=== PATIENT | male | born 1960 | race Caucasian/White ===

== ENCOUNTER 2018-06-21 07:48 | Day surgery (SDC) | payer OTHER ==
[~2018-06-21 07:48] MED LIST: EPHEDrine SULFATE 50 MG/5 ML SYG
[2018-06-21] MEDS ORDERED: CEFAZOLIN 1 GM INJ (08:39)
[2018-06-21] MEDS ORDERED: ROCURONIUM 50 MG INJ (08:39)
[2018-06-21] MEDS ORDERED: MIDAZOLAM 1 MG/ML 2 ML INJ (08:39)
[2018-06-21] MEDS ORDERED: PROPOFOL 20 ML (08:39)
[2018-06-21] MEDS ORDERED: FENTAnyl 50 MCG/ML VIAL ×2 (08:39→11:52)
[2018-06-21] MEDS ORDERED: ONDANSETRON 4 MG INJ (09:39)
[2018-06-21] MEDS ORDERED: DEXAMETHASONE 4 MG/ML 1 ML INJ (09:39)
[2018-06-21] MEDS ORDERED: LIDOCAINE 1%/EPI 30 ML INJ (11:26)
[2018-06-21] MEDS ORDERED: BACITRACIN/POLYMYXIN 28.35 GM OINT TOP (11:27)
[2018-06-21] MEDS ORDERED: COCAINE 4% 4 ML TOP (11:27)
[2018-06-21] MEDS: LIDOCAINE 1%/EPI 30 ML INJ INJ (11:46)
[2018-06-21] MEDS: COCAINE 4% 4 ML TOP (11:46)
[2018-06-21] MEDS ORDERED: PHENYLephrine (100 MCG/ML) 5ML SYG (12:12)
[2018-06-21] MEDS ORDERED: FENTAnyl 50 MCG/ML VIAL IV ×3 (12:30)
[2018-06-21] MEDS ORDERED: EPHEDrine SULFATE 50 MG/5 ML SYG IV (12:30)
[2018-06-21] MEDS ORDERED: OXYCODONE/ACETAMINOPHEN (5/325) TAB PO ×2 (12:30)
[2018-06-21] MEDS ORDERED: hydrALAzine 20 MG INJ IV (12:30)
[2018-06-21] MEDS ORDERED: ALBUMIN HUMAN 5% 250 ML IV (12:30)
[2018-06-21] MEDS ORDERED: METOCLOPRAMIDE 10 MG INJ IV (12:30)
[2018-06-21] MEDS ORDERED: HYDROmorphONE 1 MG/5 ML IV SYRINGE IV ×3 (12:30)
[2018-06-21] MEDS ORDERED: DIPHENHYDRAMINE 50 MG INJ IV (12:30)
[2018-06-21] MEDS ORDERED: MEPERIDINE 25 MG INJ IV (12:30)
[2018-06-21] MEDS ORDERED: ONDANSETRON 4 MG INJ IV (12:30)
[2018-06-21] MEDS ORDERED: LABETALOL HCL 20MG INJ IV (12:30)
[2018-06-21] MEDS ORDERED: SUGAMMADEX SODIUM 200 MG/2 ML VIAL IV (12:45)
[2018-06-21] MEDS: BACITRACIN/POLYMYXIN 0.9 GM OINT ZFS (12:46)
== END 2018-06-21 15:20 | disposition home or self-care (01) ==
LOC: SDS 07:48
DX: J34.3 Hypertrophy of nasal turbinates (principal); J34.2 Deviated nasal septum; I10 Essential (primary) hypertension; E11.9 Type 2 diabetes mellitus without complications; E66.9 Obesity, unspecified; Z68.38 Body mass index [BMI] 38.0-38.9, adult; Z79.82 Long term (current) use of aspirin; Z79.84 Long term (current) use of oral hypoglycemic drugs
CPT/HCPCS: 30140; 82962; 88304